=== PATIENT | male | born 1985 | race Caucasian/White ===

== ENCOUNTER 2020-02-17 19:24 | Emergency (ER) | payer BC ==
[~2020-02-17] VITALS: Ht 180.3 cm; Wt 112.0 kg
[2020-02-17 19:52] VITALS: BP 171/94
[2020-02-17] MEDS ORDERED: IV NORMAL SALINE 1,000ML 1,000 ML IV ONE (20:15)
[2020-02-17] MEDS ORDERED: ONDANSETRON PF 4 MG/2 ML VIAL. IVP ONE (20:15)
--- NOTE | 2020-02-17 20:18 | PHYS DOC ---
Past History Past Medical History: No Pertinent History Additional Past Surgical Histo: Hip surgery x2 Alcohol Use: Heavy General Adult EDM: Chief Complaint: ALCOHOL INTOXICATION HPI: HPI: Patient is a 34-year-old male coming in with father for alcohol intoxication and dependence. Patient was wanting to go to rehab after drinking heavily for the past 8 days. Patient states he drinks daily. Denies any history of alcohol drawl seizures but does get tremors. Denies any other medical problems. Denies any drug use. Says he uses chewing tobacco. Denies suicidal or homicidal ideation or hallucinations. Her father has been to rehab twice before Review of Systems: Review of Systems: Constitutional: Denies fever or chills Eyes: Denies change in visual acuity HENT: Denies nasal congestion or sore throat Respiratory: Denies cough or shortness of breath Cardiovascular: Denies chest pain or edema GI: Denies abdominal pain, nausea, vomiting, bloody stools or diarrhea : Denies dysuria Musculoskeletal: Denies back pain or joint pain Integument: Denies rash Neurologic: Denies headache, focal weakness or sensory changes Endocrine: Denies polyuria or polydipsia Lymphatic: Denies swollen glands Psychiatric: Denies depression or anxiety Current Medications: Current Meds: Current Medications Medications (Trade) Dose Ordered Sig/Carmela Start Time Stop Time Status Last Admin Dose Admin Ondansetron HCl (Zofran) 4 mg 1X ONCE 02/17/20 20:15 02/17/20 20:16 Sodium Chloride 1,000 ml @ 1,000 mls/hr 1X ONCE 02/17/20 20:15 02/17/20 21:14 Allergies: Allergies: Allergies Coded Allergies Type Severity Reaction Last Updated Verified No Known Drug Allergies 02/17/20 No Physical Exam: PE: Constitutional: Well developed, well nourished, no acute distress, non-toxic appearance. [] HENT: Normocephalic, atraumatic, bilateral external ears normal, oropharynx moist, no oral exudates, nose normal. [] Eyes: PERRLA, EOMI, conjunctiva normal, no discharge. [] Neck: Normal range of motion, no tenderness, supple, no stridor. [] Cardiovascular:Heart rate regular rhythm, no murmur [] Lungs & Thorax: Bilateral breath sounds clear to auscultation [] Abdomen: Bowel sounds normal, soft, no tenderness, no masses, no pulsatile masses. [] Skin: Warm, dry, no erythema, no rash. [] Back: No tenderness, no CVA tenderness. [] Extremities: No tenderness, no cyanosis, no clubbing, ROM intact, no edema. [] Neurologic: Alert and oriented X 3, normal motor function, normal sensory function, no focal deficits noted. [] Psychologic: Affect normal, judgement normal, mood normal. [] Current Patient Data: Vital Signs: Vital Signs Date Time Temp Pulse Resp B/P (MAP) Pulse Ox O2 Delivery O2 Flow Rate FiO2 02/17/20 19:52 98.2 88 18 171/94 (119) 95 EKG: EKG: [] Radiology/Procedures: Radiology/Procedures: [] Heart Score: Risk Factors: Risk Factors: DM, Current or recent (<one month) smoker, HTN, HLP, family history of CAD, obesity. Risk Scores: Score 0 - 3: 2.5% MACE over next 6 weeks - Discharge Home Score 4 - 6: 20.3% MACE over next 6 weeks - Admit for Clinical Observation Score 7 - 10: 72.7% MACE over next 6 weeks - Early Invasive Strategies Course & Med Decision Making: Course & Med Decision Making No acute process of intoxication with alcohol [] Dragon Disclaimer: Jas Disclaimer: This electronic medical record was generated, in whole or in part, using a voice recognition dictation system. Departure Departure: Impression: Primary Impression: Alcohol abuse Disposition: 01 DC HOME SELF CARE/HOMELESS Condition: STABLE Referrals: PCP,NO (PCP) Patient Instructions: Alcohol Intoxication, [id number] Additional Instructions: Medically cleared by emergency department for inpatient detox and alcohol treatment GINA PARDO MD Feb 17, 2020 20:18
[2020-02-17 21:05] LABS: BASO # 0.1 x10^3/uL (0.0-0.2); BASO % 2 % (0-3); EOS % 0 % (0-3); HEMATOCRIT 50.6 % (39.0-53.0); HEMOGLOBIN 16.6 g/dL (13.0-17.5); LYMPH # 1.4 x10^3/uL (1.0-4.8); LYMPH % 31 % (24-48); MEAN CORPUSCULAR HEMOGLOBIN 32 pg (25-35); MEAN CORPUSCULAR HGB CONC 33 g/dL (31-37); MEAN CORPUSCULAR VOLUME 97 fL (79-100); MONO # 0.6 x10^3/uL (0.0-1.1); MONO % 14 % (0-9); NEUT # 2.3 x10^3uL (1.8-7.7); NEUT % 52 % (31-73); PLATELET COUNT 224 x10^3/uL (140-400); RED BLOOD COUNT 5.23 x10^6/uL (4.30-5.70); RED CELL DISTRIBUTION WIDTH 13.3 % (11.5-14.5); WHITE BLOOD COUNT 4.5 x10^3/uL (4.0-11.0)
[2020-02-17 21:15] LABS: CALCIUM 9.4 mg/dL (8.5-10.1); CREATININE 1.1 mg/dL (0.7-1.3); GFR 77.6; POTASSIUM 4.3 mmol/L (3.5-5.1)
[2020-02-17 21:21] LABS: ALBUMIN 4.2 g/dL (3.4-5.0); MAGNESIUM 2.2 mg/dL (1.8-2.4); TOTAL BILIRUBIN 0.4 mg/dL (0.2-1.0); TOTAL PROTEIN 8.6 g/dL (6.4-8.2)
[2020-02-17 21:22] LABS: SALIC < 2.8 mg/dL (2.8-20.0)
[2020-02-17 21:23] LABS: ACETAMIN < 2.0 mcg/mL (10-30); ETHANOL > 300 mg/dL (0-10)
[2020-02-17 22:22] LABS: AMPHETAMINE/METHAMPHETAMINE NEG (NEG); BARBITURATES NEG (NEG); BENZODIAZEPINES NEG (NEG); CANNABINOIDS NEG (NEG); COCAINE NEG (NEG); METHADONE NEG (NEG); OPIATES NEG (NEG); PHENCYCLIDINE NEG (NEG)
[2020-02-17 22:24] LABS: BILIRUBIN,URINE NEG (NEG); CLARITY,URINE CLEAR; COLOR,URINE YELLOW; GLUCOSE,URINE NEG (NEG); UROBILINOGEN,URINE 0.2 mg/dL (0.2 mg/dL)
[2020-02-17 22:25] LABS: BACTERIA,URINE 0 /HPF (0-FEW); NITRITE,URINE NEG (NEG); RBC,URINE 0 /HPF (0-2); SQUAMOUS EPITHELIAL CELL,UR OCC /LPF; WBC,URINE 0 /HPF (0-4)
== END 2020-02-17 22:45 | disposition home or self-care (01) ==
LOC: ER 19:24
DX: F10.229 Alcohol dependence with intoxication, unspecified (principal); F17.220 Nicotine dependence, chewing tobacco, uncomplicated; Y90.8 Blood alcohol level of 240 mg/100 ml or more
CPT/HCPCS: 36415; 80053; 80307; 80329; 81001; 83735; 85025; 96360; 99283; G0480; J7030

== ENCOUNTER 2020-04-02 13:43 | Emergency (ER) | payer BC ==
[~2020-04-02] VITALS: Ht 180.3 cm; Wt 115.1 kg
[2020-04-02] MEDS ORDERED: LABETALOL 20 MG/4 ML DISP.SYRIN. IVP ONE (14:15)
--- NOTE | 2020-04-02 14:17 | PHYS DOC ---
Past History Past Medical History: No Pertinent History Additional Past Surgical Histo: Hip surgery x2 Alcohol Use: Heavy General Adult EDM: Chief Complaint: LOWER EXTREMITY EDEMA HPI: HPI: Patient is a 34 year old M who presents with bilateral lower ext swelling. this started a few days ago and has progressively been getting worse. He denies any new rashes. He denies fevers. He as generalized aches over all the extremities and he has noticed his hands ahve been swelling as well. Location generalized. Duration constant. No alleviating factors. He was seen by a urgent care who sent him here for blood work. He has a history of hypertension but has not been taking his medications for multiple months. Review of systems is negative for rashes fevers chills abdominal pain vomiting chest pain shortness of breath. All other review of systems negative. ED course: 34-year-old male presenting to the emergency department today with extremity swelling. On arrival the patient was hypertensive. I had ordered labetalol however the patient's blood pressure came down before we gave the labetalol so we did not give the labetalol. Ultrasound of the venous system of the legs bilaterally unremarkable. CBC and chemistry panel unremarkable. Urinalysis unremarkable. proBNP is elevated. Troponin within normal limits. EKG shows sinus tachycardia. ST segments are congruent. Not suggestive of acute ischemia. We will give the patient a small dose of Lasix here and give him oral Lasix for a few days. We will have him follow-up with his regular doctor or our internal medicine doctor within the next 2 or 3 days. We will also refer him to outpatient cardiology within the next 2 to 3 days. He probably will need to get an echocardiogram within the next week. He is to return if he cannot get this outpatient work-up. The patient has been examined and was not found to have an emergency medical condition. The patient was then discharged home in stable condition to follow up with their primary care p hysician over the next 1-2 days. They were to return if their symptoms worsened or if they were concerned for any reason. They were also instructed to return to the emergency department if they were unable to get the recommended and appropriate follow-up. [id number] discharge instructions and return precautions were given. Patient's questions were answered to their satisfaction. Patient is comfortable with plan. Allergies: Allergies: Allergies Coded Allergies Type Severity Reaction Last Updated Verified No Known Drug Allergies 02/17/20 No Physical Exam: PE: Constitutional: Well developed, well nourished, no acute distress, non-toxic a ppearance. [] HENT: Normocephalic, atraumatic, bilateral external ears normal, oropharynx moist, no oral exudates, nose normal. [] Eyes: PERRLA, EOMI, conjunctiva normal, no discharge. [] Neck: Normal range of motion, no tenderness, supple, no stridor. [] Cardiovascular:Heart rate regular rhythm, no murmur [] Lungs & Thorax: Bilateral breath sounds clear to auscultation [] Abdomen: Bowel sounds normal, soft, no tenderness, no masses, no pulsatile masses. [] Skin: Warm, dry, no erythema, no rash. [] Back: No tenderness, no CVA tenderness. [] Extremities: No tenderness, no cyanosis, no clubbing, ROM intact, 2+ bilateral pedal edema Neurologic: Alert and oriented X 3, normal motor function, normal sensory function, no focal deficits noted. [] Psychologic: Affect normal, judgement normal, mood normal. [] EKG: EKG: [] Radiology/Procedures: Radiology/Procedures: [] Heart Score: Risk Factors: Risk Factors: DM, Current or recent (<one month) smoker, HTN, HLP, family history of CAD, obesity. Risk Scores: Score 0 - 3: 2.5% MACE over next 6 weeks - Discharge Home Score 4 - 6: 20.3% MACE over next 6 weeks - Admit for Clinical Observation Score 7 - 10: 72.7% MACE over next 6 weeks - Early Invasive Strategies Course & Med Decision Making: Course & Med Decision Making Pertinent Labs and Imaging studies reviewed. (See chart for details) [] Dragon Disclaimer: Dragon Disclaimer: This electronic medical record was generated, in whole or in part, using a voice recognition dictation system. Departure Departure: Impression: Primary Impression: Leg edema Disposition: 01 DC HOME SELF CARE/HOMELESS Condition: STABLE Referrals: PCP,STEPHANIE (PCP) GREGG ROMAN MD in 2-3 days RALPH RAMIRES MD in 2-3 days Patient Instructions: Heart Failure Scripts Furosemide (LASIX) 20 Mg Tablet 1 TAB PO DAILY for pedal edema for 3 Days, #3 TAB 0 Refills Prov: MARCELO ANTONIO MD 04/02/20 MARCELO ANTONIO MD Apr 02, 2020 14:17
[2020-04-02 14:48] LABS: BASO # 0.1 x10^3/uL (0.0-0.2); BASO % 1 % (0-3); EOS # 0.1 x10^3/uL (0.0-0.7); EOS % 1 % (0-3); HEMATOCRIT 41.3 % (39.0-53.0); HEMOGLOBIN 13.7 g/dL (13.0-17.5); LYMPH # 1.6 x10^3/uL (1.0-4.8); LYMPH % 21 % (24-48); MEAN CORPUSCULAR HEMOGLOBIN 31 pg (25-35); MEAN CORPUSCULAR HGB CONC 33 g/dL (31-37); MEAN CORPUSCULAR VOLUME 93 fL (79-100); MONO # 0.6 x10^3/uL (0.0-1.1); MONO % 9 % (0-9); NEUT % 68 % (31-73); PLATELET COUNT 176 x10^3/uL (140-400); RED BLOOD COUNT 4.44 x10^6/uL (4.30-5.70); RED CELL DISTRIBUTION WIDTH 12.9 % (11.5-14.5); WHITE BLOOD COUNT 7.3 x10^3/uL (4.0-11.0)
[2020-04-02 14:55] LABS: BACTERIA,URINE 0 /HPF (0-FEW); BILIRUBIN,URINE NEG (NEG); CLARITY,URINE CLEAR; COLOR,URINE YELLOW; GLUCOSE,URINE NEG (NEG); NITRITE,URINE NEG (NEG); RBC,URINE 0 /HPF (0-2); SQUAMOUS EPITHELIAL CELL,UR OCC /LPF; UROBILINOGEN,URINE 0.2 mg/dL (0.2 mg/dL); WBC,URINE 0 /HPF (0-4)
[2020-04-02 14:56] LABS: CALCIUM 8.8 mg/dL (8.5-10.1); CREATININE 0.7 mg/dL (0.7-1.3); GFR 130.7; POTASSIUM 3.8 mmol/L (3.5-5.1)
--- NOTE | 2020-04-02 14:56 | RAD ---
Examination: Bilateral Lower Extremity Venous Doppler Ultrasound History: Bilateral lower extremity swelling Comparison: None Procedure: Maldonado scale, color flow 2D and spectal waveform analysis images are obtained with and witho ut compression in the area of the common femoral vein, superficial femoral vein - femoral vein juncti on, main femoral vein (superficial femoral vein) and popliteal vein. Veins of the proximal calf are a lso imaged. Findings: There is normal duplex flow, color flow and compressibility of all visualized vein segments. No evide nce of deep venous thrombus is present. Impression: No evidence of DVT in the bilateral lower extremity venous system. Electronically signed by: Isaias Sheikh MD (04/02/2020 2:53 PM) [id number]
[2020-04-02 15:08] LABS: ALBUMIN 3.6 g/dL (3.4-5.0); DIRECT BILIRUBIN 0.2 mg/dL (0.0-0.2); TOTAL BILIRUBIN 0.5 mg/dL (0.2-1.0); TOTAL PROTEIN 6.9 g/dL (6.4-8.2)
[2020-04-02 15:10] VITALS: BP 151/95
[2020-04-02] MEDS ORDERED: FUROSEMIDE 40 MG/4 ML VIAL IVP ONE (15:30)
[2020-04-02] MEDS ORDERED: FURO-69 PO (15:31)
--- NOTE | 2020-04-02 16:10 | EKG ---
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
== END 2020-04-02 16:19 | disposition home or self-care (01) ==
LOC: ER 13:43
DX: R60.0 Localized edema (principal); M79.10 Myalgia, unspecified site; F10.20 Alcohol dependence, uncomplicated; Y90.9 Presence of alcohol in blood, level not specified
CPT/HCPCS: 36415; 80048; 80076; 81001; 83690; 83880; 84484; 85025; 93005; 93970; 96374; 99285; J1940

== ENCOUNTER 2020-06-02 11:13 | Emergency (ER) | payer SELFPAY ==
[~2020-06-02] VITALS: Ht 177.8 cm; Wt 95.0 kg
[~2020-06-02 11:13] MED LIST: FURO-69 PO
[2020-06-02 11:45] LABS: BASO # 0.1 x10^3/uL (0.0-0.2); BASO % 2 % (0-3); EOS % 0 % (0-3); HEMATOCRIT 49.1 % (39.0-53.0); HEMOGLOBIN 16.1 g/dL (13.0-17.5); LYMPH # 1.7 x10^3/uL (1.0-4.8); LYMPH % 30 % (24-48); MEAN CORPUSCULAR HEMOGLOBIN 31 pg (25-35); MEAN CORPUSCULAR HGB CONC 33 g/dL (31-37); MEAN CORPUSCULAR VOLUME 94 fL (79-100); MONO # 0.5 x10^3/uL (0.0-1.1); MONO % 9 % (0-9); NEUT # 3.2 x10^3uL (1.8-7.7); NEUT % 59 % (31-73); PLATELET COUNT 301 x10^3/uL (140-400); RED BLOOD COUNT 5.23 x10^6/uL (4.30-5.70); RED CELL DISTRIBUTION WIDTH 14.2 % (11.5-14.5); WHITE BLOOD COUNT 5.4 x10^3/uL (4.0-11.0)
[2020-06-02 12:16] LABS: CALCIUM 9.4 mg/dL (8.5-10.1); CREATININE 0.8 mg/dL (0.7-1.3); GFR 111.3
--- NOTE | 2020-06-02 12:25 | EKG ---
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
[2020-06-02 12:29] LABS: ALBUMIN 4.2 g/dL (3.4-5.0); ALBUMIN/GLOBULIN RATIO 1.1 (1.0-1.7); MAGNESIUM 1.9 mg/dL (1.8-2.4); PHOSPHORUS 4.6 mg/dL (2.6-4.7); TOTAL BILIRUBIN 0.5 mg/dL (0.2-1.0)
[2020-06-02 12:48] LABS: SALIC < 2.8 mg/dL (2.8-20.0)
[2020-06-02 12:49] LABS: ACETAMIN < 2.0 mcg/mL (10-30); ETHANOL 600 mg/dL (0-10)
--- NOTE | 2020-06-02 13:27 | PHYS DOC ---
Past History Past Medical History: Alcoholism Additional Past Medical Histor: UNKNOW PT UNABLE TO RESPOND (GINA PARDO MD) Past Surgical History: No Surgical History (GINA PARDO MD) Alcohol Use: Heavy Social History Narrative: UNKNOWN SUBSTANCE (GINA PARDO MD) General Adult EDM: Chief Complaint: ALCOHOL INTOXICATION HPI: HPI: Patient is a 35-year-old male brought in by EMS after being found minimally responsive at home. Patient has a history of alcohol and drug use. EMS gave Narcan with some response and increased respiratory rate. Patient has had but stable vital signs. History limited to EMS report due to no presence of family and patient's intoxication. After patient arrived he states he has been drinking heavily daily for 10 years. Says occasions of the drugs. Patient states that he also has anxiety and takes Klonopin and Xanax, states he does not member who prescribes them for him but he has had prescriptions filled within the past 30 days. Per [facility] there are no benzodiazepines prescriptions filled since 2019. (GINA PARDO MD) Review of Systems: Review of Systems: Limited by patient's intoxication (GINA PARDO MD) Physical Exam: PE: Constitutional: Well developed, well nourished. [] HENT: Normocephalic, atraumatic, bilateral external ears normal, nose normal. [] Eyes: PERRLA, conjunctiva normal, no discharge. [] Neck: No rigidity, supple, no stridor. [] Cardiovascular: Regular rate and rhythm, brisk cap refill [] Lungs & Thorax: Non labored symmetric respirations, no tachypnea or respiratory distress [] Abdomen: Soft, nondistended. Skin: Warm, dry, no erythema, no rash. [] Back: Unremarkable Extremities: No deformities, range of motion grossly intact, no lower extremity edema [] Neurologic: Awakes to voice [] Psychologic: Affect normal, judgement normal, mood normal. [] (GINA PARDO MD) Current Patient Data: Labs: Laboratory Tests Test 06/02/20 11:26 White Blood Count 5.4 x10^3/uL (4.0-11.0) Red Blood Count 5.23 x10^6/uL (4.30-5.70) Hemoglobin 16.1 g/dL (13.0-17.5) Hematocrit 49.1 % (39.0-53.0) Mean Corpuscular Volume 94 fL (79-100) Mean Corpuscular Hemoglobin 31 pg (25-35) Mean Corpuscular Hemoglobin Concent 33 g/dL (31-37) Red Cell Distribution Width 14.2 % (11.5-14.5) Platelet Count 301 x10^3/uL (140-400) Neutrophils (%) (Auto) 59 % (31-73) Lymphocytes (%) (Auto) 30 % (24-48) Monocytes (%) (Auto) 9 % (0-9) Eosinophils (%) (Auto) 0 % (0-3) Basophils (%) (Auto) 2 % (0-3) Neutrophils # (Auto) 3.2 x10^3uL (1.8-7.7) Lymphocytes # (Auto) 1.7 x10^3/uL (1.0-4.8) Monocytes # (Auto) 0.5 x10^3/uL (0.0-1.1) Eosinophils # (Auto) 0.0 x10^3/uL (0.0-0.7) Basophils # (Auto) 0.1 x10^3/uL (0.0-0.2) Sodium Level 139 mmol/L (136-145) Potassium Level 5.0 mmol/L (3.5-5.1) Chloride Level 96 mmol/L (98-107) L Carbon Dioxide Level 25 mmol/L (21-32) Anion Gap 18 (6-14) H Blood Urea Nitrogen 16 mg/dL (8-26) Creatinine 0.8 mg/dL (0.7-1.3) Estimated GFR (Cockcroft-Gault) 111.3 BUN/Creatinine Ratio 20 (6-20) Glucose Level 77 mg/dL (70-99) Calcium Level 9.4 mg/dL (8.5-10.1) Phosphorus Level 4.6 mg/dL (2.6-4.7) Magnesium Level 1.9 mg/dL (1.8-2.4) Total Bilirubin 0.5 mg/dL (0.2-1.0) Aspartate Amino Transferase (AST) 171 U/L (15-37) H Alanine Aminotransferase (ALT) 241 U/L (16-63) H Alkaline Phosphatase 105 U/L (46-116) Ammonia 14 mcmol/L (11-34) Troponin I Quantitative < 0.017 ng/mL (0-0.055) TZ-Esq-Z-Type Natriuretic Peptide 5 pg/mL (0-124) Total Protein 8.0 g/dL (6.4-8.2) Albumin 4.2 g/dL (3.4-5.0) Albumin/Globulin Ratio 1.1 (1.0-1.7) Lipase 484 U/L (73-393) H Salicylates Level < 2.8 mg/dL (2.8-20.0) L Salicylate Last Dose Date Unknown Salicylate Last Dose Time Unknowm Acetaminophen Level < 2.0 mcg/mL (10-30) L Acetaminophen Last Dose Date Unknown Acetaminophen Last Dose Time Unknown Ethyl Alcohol Level 600 mg/dL (0-10) *H Vital Signs: Vital Signs Date Time Temp Pulse Resp B/P (MAP) Pulse Ox O2 Delivery O2 Flow Rate FiO2 06/02/20 12:00 98.0 93 16 142/92 (109) 92 Room Air (GINA PARDO MD) EKG: EKG: Sinus tachycardia, heart rate 102 bpm, normal axis, no ST elevation or depression, no ischemic changes. T waves unremarkable, borderline QT prolongation, no ectopy [] (GINA PARDO MD) Radiology/Procedures: Radiology/Procedures: [] (GINA PARDO MD) Heart Score: C/O Chest Pain: N/A Risk Factors: Risk Factors: DM, Current or recent (<one month) smoker, HTN, HLP, family hi story of CAD, obesity. Risk Scores: Score 0 - 3: 2.5% MACE over next 6 weeks - Discharge Home Score 4 - 6: 20.3% MACE over next 6 weeks - Admit for Clinical Observation Score 7 - 10: 72.7% MACE over next 6 weeks - Early Invasive Strategies (GINA PARDO MD) Course & Med Decision Making: Course & Med Decision Making Patient evaluated by the psych assessment team. Patient states he is willing to go to inpatient detox and rehab. He can be accepted to [facility] when alcohol as below 400. Patient prescribed a Librium taper. Pending repeat alcohol level at 1830, care transitioned to Dr. Castillo at shift change (GINA PARDO MD) Course & Med Decision Making Patient care transferred to ia at shift change. Patient alert and oriented no acute distress. Patient still mildly tachycardic and hypertensive. Administered another dose of Ativan before departure. Plan was to transport patient as nausea was still stable to [facility] when blood alcohol level less than 400. Patient's repeat level at 352 and patient was transferred to [facility] without issue. (EDER CASTILLO MD) Dragon Disclaimer: Dragon Disclaimer: This electronic medical record was generated, in whole or in part, using a voice recognition dictation system. (GINA PARDO MD) Departure Departure: Impression: Primary Impression: Alcohol dependence Disposition: 01 DC HOME SELF CARE/HOMELESS Condition: GUARDED Referrals: PCP,NO (PCP) Patient Instructions: Alcohol Septal Ablation Scripts Chlordiazepoxide Hcl (CHLORDIAZEPOXIDE HCL) 25 Mg Capsule 25 MG PO UD for etoh withdrawal for 4 Days, #15 CAP Day 1: 50mg q6h Day 2: 25mg q6h Day 3: 25mg q12h Day 4: 25mg at night (Rx fifteen 25mg tabs) Max 300mg per 24 hours Prov: GINA PARDO MD 06/02/20 GINA PARDO MD Jun 02, 2020 13:27 EDER CASTILLO MD Jun 02, 2020 19:50
[2020-06-02 13:29] LABS: BARBITURATES NEG (NEG); BENZODIAZEPINES NEG (NEG); CANNABINOIDS NEG (NEG); COCAINE NEG (NEG); METHADONE NEG (NEG); OPIATES NEG (NEG); PHENCYCLIDINE NEG (NEG)
[2020-06-02 13:31] LABS: AMORPHOUS SEDIMENT,UR PRESENT /HPF; BACTERIA,URINE 0 /HPF (0-FEW); BILIRUBIN,URINE NEG (NEG); CLARITY,URINE CLEAR; COLOR,URINE YELLOW; GLUCOSE,URINE NEG (NEG); NITRITE,URINE NEG (NEG); RBC,URINE 0 /HPF (0-2); UROBILINOGEN,URINE 0.2 mg/dL (0.2 mg/dL); WBC,URINE 0 /HPF (0-4)
[2020-06-02 13:34] LABS: AMPHETAMINE/METHAMPHETAMINE NEG (NEG)
[2020-06-02] MEDS ORDERED: IV NORMAL SALINE 1,000ML 1,000 ML IV ONE ×3 (14:15→18:15)
[2020-06-02] MEDS ORDERED: ONDANSETRON PF 4 MG/2 ML VIAL. IVP ONE (14:30)
[2020-06-02] MEDS ORDERED: KETOROLAC 15 MG/ML VIAL. IVP ONE (14:30)
[2020-06-02] MEDS ORDERED: hydrOXYzine HCL 25 MG TABLET PO PRN (15:30)
[2020-06-02] MEDS ORDERED: MVI, ADULT NO.4 WITH VIT K 10 ML, FOLIC ACID INJ 1 MG, THIAMINE INJ 100 MG in IV RINGER... IV ONE (16:30)
[2020-06-02] MEDS ORDERED: CHLO25CA9 PO (17:19)
[2020-06-02 20:11] VITALS: BP 126/87
== END 2020-06-02 21:35 | disposition home or self-care (01) ==
LOC: MERGE 11:13 → ER 11:13
DX: F10.20 Alcohol dependence, uncomplicated (principal); Y90.8 Blood alcohol level of 240 mg/100 ml or more
CPT/HCPCS: 36415; 80053; 80307; 80329; 81001; 82140; 83690; 83735; 83880; 84100; 84484; 85025; 93005; 96361; 96365; 96375; 96376; 99285; G0480; J1885; J2060; J2405; J7030; J7120

== ENCOUNTER 2021-02-21 06:59 | Inpatient (IN) | payer BC ==
[~2021-02-21] VITALS: Ht 182.9 cm; Wt 103.6 kg
[~2021-02-21 06:59] MED LIST changes: +CHLO25CA9 PO
[2021-02-21] MEDS ORDERED: VANCOMYCIN PER PHARMACY MC PRN (07:30)
[2021-02-21] MEDS ORDERED: IV NORMAL SALINE 1,000ML 1,000 ML IV ONE (07:30)
[2021-02-21] MEDS ORDERED: ONDANSETRON PF 4 MG/2 ML VIAL. IVP ONE (07:30)
[2021-02-21] MEDS ORDERED: MORPHINE SULFATE 4 MG/ML DISP.SYRIN. IV ONE (07:30)
--- NOTE | 2021-02-21 07:37 | PHYS DOC ---
Past History Past Medical History: Alcoholism Additional Past Medical Histor: UNKNOW PT UNABLE TO RESPOND Past Surgical History: No Surgical History Additional Past Surgical Histo: knee surgery, left Alcohol Use: Heavy General Adult EDM: Chief Complaint: SKIN PROBLEM HPI: HPI: 35-year-old male presents with right leg pain and rash. The patient ran into a piece of furniture 3 days ago and sustained some scratches to his right lower leg. It was painful but he did not think that much of it. He had some spreading erythema and warmth of the skin yesterday and he put Neosporin and hydroperoxide on the area without improvement. When he woke up this morning, he had 2 oozing lesions from his leg and it was painful to even stand up. He also noticed red streaking coming up his thigh to his groin. He decided he should come in for evaluation. On arrival the patient nearly had a fever with a temperature of 100.1. His heart rate is elevated in the 140s. Patient denies any other complaints at this time. Review of Systems: Review of Systems: Constitutional: Denies fever or chills Eyes: Denies change in visual acuity HENT: Denies nasal congestion or sore throat Respiratory: Denies cough or shortness of breath Cardiovascular: Denies chest pain or edema GI: Denies abdominal pain, nausea, vomiting, bloody stools or diarrhea : Denies dysuria Musculoskeletal: Denies back pain or joint pain Integument: Rash, lesions Neurologic: Denies headache, focal weakness or sensory changes Endocrine: Denies polyuria or polydipsia Lymphatic: Denies swollen glands Psychiatric: Denies depression or anxiety Current Medications: Current Meds: Current Medications Medications (Trade) Dose Ordered Sig/Carmela Start Time Stop Time Status Last Admin Dose Admin Morphine Sulfate (Morphine 4mg Syringe) 4 mg 1X ONCE 02/21/21 07:30 02/21/21 07:32 DC Ondansetron HCl (Zofran) 4 mg 1X ONCE 02/21/21 07:30 02/21/21 07:32 DC Sodium Chloride 3,000 ml @ 3,000 mls/hr Q1H 02/21/21 07:45 UNV Vancomycin HCl (Vanco Per Pharmacy) 1 each PRN DAILY PRN 02/21/21 07:30 Vancomycin HCl 2 gm/Sodium Chloride 500 ml @ 250 mls/hr 1X ONCE 02/21/21 08:00 12/6/21 09:59 Allergies: Allergies: Allergies Coded Allergies Type Severity Reaction Last Updated Verified No Known Drug Allergies 02/17/20 No Physical Exam: PE: Constitutional: Well developed, well nourished, no acute distress, non-toxic appearance. [] HENT: Normocephalic, atraumatic, bilateral external ears normal, oropharynx moist, no oral exudates, nose normal. [] Eyes: PERRLA, EOMI, conjunctiva normal, no discharge. [] Neck: Normal range of motion, no tenderness, supple, no stridor. [] Cardiovascular:Heart rate regular rhythm, no murmur [] Lungs & Thorax: Bilateral breath sounds clear to auscultation [] Abdomen: Bowel sounds normal, soft, no tenderness, no masses, no pulsatile masses. [] Skin: To open and oozing sores of the right lower leg with at least 15 cm of surrounding erythema and warmth. Red streaking up the medial right leg to the groin. [] Back: No tenderness, no CVA tenderness. [] Extremities: No tenderness, no cyanosis, no clubbing, ROM intact, no edema. [] Neurologic: Alert and oriented X 3, normal motor function, normal sensory function, no focal deficits noted. [] Psychologic: Affect normal, judgement normal, mood normal. [] Current Patient Data: Vital Signs: Vital Signs Date Time Temp Pulse Resp B/P (MAP) Pulse Ox O2 Delivery O2 Flow Rate FiO2 02/21/21 07:12 100.1 140 20 166/120 (135) 96 Room Air EKG: EKG: [] Radiology/Procedures: Radiology/Procedures: [] Heart Score: C/O Chest Pain: N/A Risk Factors: Risk Factors: DM, Current or recent (<one month) smoker, HTN, HLP, family history of CAD, obesity. Risk Scores: Score 0 - 3: 2.5% MACE over next 6 weeks - Discharge Home Score 4 - 6: 20.3% MACE over next 6 weeks - Admit for Clinical Observation Score 7 - 10: 72.7% MACE over next 6 weeks - Early Invasive Strategies Course & Med Decision Making: Course & Med Decision Making Pertinent Labs and Imaging studies reviewed. (See chart for details) The patient has an elevated heart rate and borderline fever on arrival. His labs are significant for an elevated white count with a left shift. He has a sodium of 127 and some increased liver enzymes. His lactic acid is within normal limits. I have ordered 30 mL/kg of fluids, blood cultures, and vancomycin. Given the rapid advancement and streaking I will admit the patient to the hospital. I spoke with Dr. Lowery and he has accepted the patient for admission. [] Dragon Disclaimer: Dragon Disclaimer: This electronic medical record was generated, in whole or in part, using a voice recognition dictation system. Departure Departure: Impression: Primary Impression: Cellulitis of right leg Disposition: ADMITTED INPATIENT Admitting Physician: Quinn Lowery Condition: STABLE Referrals: PCP,NO (PCP) JORGE GREGORY DO Feb 21, 2021 07:37
[2021-02-21 07:48] LABS: BASO % 0 % (0-3); EOS % 0 % (0-3); HEMATOCRIT 42.6 % (39.0-53.0); HEMOGLOBIN 14.7 g/dL (13.0-17.5); LYMPH # 1.3 x10^3/uL (1.0-4.8); LYMPH % 9 % (24-48); MEAN CORPUSCULAR HEMOGLOBIN 32 pg (25-35); MEAN CORPUSCULAR HGB CONC 35 g/dL (31-37); MEAN CORPUSCULAR VOLUME 94 fL (79-100); MONO # 1.1 x10^3/uL (0.0-1.1); MONO % 8 % (0-9); NEUT # 11.6 x10^3uL (1.8-7.7); NEUT % 83 % (31-73); PLATELET COUNT 235 x10^3/uL (140-400); RED BLOOD COUNT 4.55 x10^6/uL (4.30-5.70); RED CELL DISTRIBUTION WIDTH 14.1 % (11.5-14.5)
[2021-02-21] MEDS ORDERED: VANCOMYCIN 2 GM in IV NORMAL SALINE 500ML 500 ML IV ONE (08:00)
[2021-02-21] MEDS ORDERED: IV NORMAL SALINE 500ML 500 ML ONE (08:00)
[2021-02-21 08:01] LABS: CALCIUM 9.1 mg/dL (8.5-10.1); CREATININE 0.8 mg/dL (0.7-1.3); GFR 111.3; POTASSIUM 3.8 mmol/L (3.5-5.1)
[2021-02-21] MEDS ORDERED: VANCOMYCIN 1 GM VIAL. ONE (08:01)
[2021-02-21 08:16] LABS: ALBUMIN 3.5 g/dL (3.4-5.0); ALBUMIN/GLOBULIN RATIO 0.7 (1.0-1.7); TOTAL BILIRUBIN 0.6 mg/dL (0.2-1.0); TOTAL PROTEIN 8.4 g/dL (6.4-8.2)
[2021-02-21] MEDS ORDERED: ONDANSETRON PF 4 MG/2 ML VIAL. IVP PRN (08:45)
[2021-02-21] MEDS: ACETAMINOPHEN 325 MG TABLET PO PRN ×2 (09:20→13:41)
[2021-02-21] MEDS: MORPHINE SULFATE 2 MG/ML DISP.SYRIN. IVP PRN ×2 (09:21→13:42)
[2021-02-21 09:42] LABS: BACTERIA,URINE 0 /HPF (0-FEW); BILIRUBIN,URINE NEG (NEG); CLARITY,URINE CLEAR; COLOR,URINE YELLOW; GLUCOSE,URINE NEG (NEG); NITRITE,URINE NEG (NEG); UROBILINOGEN,URINE 0.2 mg/dL (0.2 mg/dL)
[2021-02-21 09:43] LABS: SQUAMOUS EPITHELIAL CELL,UR FEW /LPF
[2021-02-21] MEDS: IV NORMAL SALINE 1,000ML 1,000 ML IV SCH ×3 (09:45→16:01)
[2021-02-21 10:23] LABS: % ATYL 6 % (0-0); % BANDS 14 % (0-9); % LYMPHS 10 % (24-48); % MONOS 4 % (0-10); % SEGS 66 % (35-66); NUCLEATED RBC 1
[2021-02-21 10:25] LABS: PLT ESTIMATE ADEQUATE (ADEQUATE)
[2021-02-21 12:50] VITALS: BP 152/95
--- NOTE | 2021-02-21 13:26 | NUR ---
PATIENT IS A 35 Y O MALE ARRIVED VIA EMS. PATIENT IS C/O PAIN TO RLE. PATIENT IS COVID POSITIVE, COVID PRECAUTIONS INITIATED. PATIENT IS ORIENTED TO THE ROOM AND HOSPITAL POLICIES.
--- NOTE | 2021-02-21 13:40 | NUR ---
Pharmacy Vancomycin Dosing Note S:Consulted to monitor and dose vancomycin started 02/21/21. O:MARIIA BOATENG I is a 35 year old M with Cellulitis, . Height: 6 feet, 0 inches Weight: 100.0 kg [place] Body Weight: 77.60 Adjusted Body Weight: 86.56 Dosing Weight: Actual Other Antibiotics: LABS: Last BUN: 7 Last Creatinine: 0.8 Creatinine Clearance: Last WBC: 14 Last Procalcitonin: Tmax (past 24 hours): Microbiology: I/O: Drug Levels: Last level: on at Last dose given 02/21/21 at 0800 Vancomycin Dosing: Loading Dose: 2000 mg x1 Dosing Weight: Actual Target Trough: 10-20 A: Based on: P: 1. Begin Vancomycin 1500 mg IV q12h 2. Follow up Trough level on 02/22/21 at 0730 3. Pharmacy will continue to monitor, follow and adjust therapy as needed. LUCERO DAMON RPH, 02/21/21 [id number]
[2021-02-21] MEDS ORDERED: ENOXAPARIN 40 MG/0.4 ML SYRINGE. SQ SCH (15:30)
[2021-02-21 15:32] VITALS: BP 153/103
[2021-02-21] MEDS: DEXAMETHASONE SOD PHOS 4 MG/ML VIAL. IVP SCH (16:06)
[2021-02-21] MEDS: HYDROmorphone PF 2 MG/ML VIAL IVP PRN ×3 (16:06→23:22)
--- NOTE | 2021-02-21 17:13 | HP ---
DATE OF SERVICE: 02/21/2021 ADMIT DATE: 02/21/2021 HISTORY OF PRESENT ILLNESS: The is a 35-year-old male patient, who presented to the Emergency Room with a complaint of pain and a rash on the right leg. He ran into a piece of furniture 3 days ago and sustained some scratches of his right lower leg. It was painful, but he did not think that much of it. He had some spreading erythema and warmth of the skin yesterday and he put some Neosporin and hydrogen peroxide on the area without any improvement. When he woke up this morning, he had two oozing lesions from his leg. It was very painful to even stand up. He also noticed red streaking coming up his thigh to his groin. He decided that he should come in for evaluation. On arrival, the patient had fever up to a temperature of 100.1, his heart rate was 140. He denied any other complaint at this time; however, on questioning him further, he said that he had flu-like symptoms almost a week and he told that he has had the flu; however, he was not vaccinated for COVID-19 and he did not receive his flu vaccine this year and he was in fact swabbed in the Emergency Room and turned out to be positive for coronavirus. While in the Emergency Room, has had lab work done including CBC, comprehensive metabolic profile, and urinalysis. He was diagnosed with right lower extremity cellulitis and lymphangitis, was started on IV vancomycin and Rocephin, has received about 3 liters of fluid while in the Emergency Room and was admitted for inpatient treatment. He continued to maintain his oxygen saturation at 96% on room air. PAST MEDICAL HISTORY: Significant for hypertension; however, he does not use any medication for that. He has also left hip osteoarthritis that is secondary to broken hip. PAST SURGICAL HISTORY: Significant for left hip surgery. ALLERGIES: He has no known drug allergies. MEDICATIONS: He is only on [id number] medication. FAMILY HISTORY: He has one brother older that at the age of 35 in a motor vehicle accident, has 2 older sisters that are healthy. Father is alive at the age of 65 and has diabetes mellitus. Mother is alive at the age of 60 and has rheumatoid arthritis. SOCIAL HISTORY: He is single, has never , has no children. He does not smoke cigarettes or chew tobacco. He drinks alcohol on weekends. He does not use any drugs. He works at [employer]. REVIEW OF SYSTEMS: As per history of present illness. PHYSICAL EXAMINATION: GENERAL: On arrival to the Emergency Room, he was febrile, tachycardic, tachypneic, but there was no pallor, jaundice, or cyanosis. No lymphadenopathy, no thyromegaly, no jugular venous distention. No lower limb edema. VITAL SIGNS: His heart rate was 140, blood pressure 166/120, temperature was 100.1, respiratory rate 20, and oxygen saturation was 96%. HEAD, EYES, EARS, NOSE, AND THROAT: Normocephalic, atraumatic. NECK: Supple. HEART: Showed normal first and second heart sounds. No gallop, rub or murmur. CHEST: Clear to auscultation, no crepitation or rhonchi. ABDOMEN: Distended, soft, nontender. There is no guarding or rigidity. No organomegaly. All hernial orifice intact. Bowel sounds normal. NEUROLOGIC: He was awake, alert, responding appropriately. Cranial nerves intact. EXTREMITIES: He moves extremities without difficulty. Examination of the right leg compared to the left, he has erythema to the skin lesion with streaking lymphangitis all the way to his right groin. LABORATORY DATA: His lab work on arrival showed a white cell count of 14,000, hemoglobin 14.7, hematocrit 42.6, MCV 94 and platelet count 235,000 with a normal manual differential. His chemistry showed a serum sodium 127, potassium 3.8, chloride 87, bicarbonate 31, anion gap of 9, BUN 7, creatinine was 0.8. His estimated GFR was 111. Glucose 129. His lactic acid was 1.2. His calcium was 9.1. Total bilirubin, alkaline phosphatase are normal. AST, ALT slightly elevated. Total protein was 8.4, albumin was 3.5. Urinalysis was essentially unremarkable. The urine was yellow, clear with a pH of 7, specific gravity of 1.010. There was small amount of protein and the urine was negative for glucose, trace of ketones, trace of blood, negative for nitrite and bilirubin. The urine was negative for leukocyte esterase, there were 3-5 rbc's, 5-10 wbc's, very few bacteria. His coronavirus by rapid testing was positive. ASSESSMENT AND PLAN: In summary, this is a 35-year-old male patient who was admitted with right lower extremity cellulitis and lymphangitis. He was also tested positive for coronavirus. He is also known to have hypertension, for which he is not getting any medication for and therefore, we will continue with IV vancomycin. Continue with pain medication, antiemetic. Continue with ceftriaxone and IV fluid. I will repeat all his lab works again tomorrow. I am going to order also a chest x-ray. SHREYAS/HARVEY DR: Viviana TID: [id number]
--- NOTE | 2021-02-21 17:35 | RAD ---
XR CHEST 1V INDICATION: Reason: cough, SOB COVID POSITIVE / Spl. Instructions: / History: . COMPARISON STUDY: 04/05/2020. FINDINGS: Lungs: Normal lung volume. No pulmonary mass or consolidation. The tracheobronchial tree and hilar st ructures are normal. Pleura: No pleural effusion or pneumothorax. Heart and Mediastinum: Cardiomegaly. The great vessels of the thorax are normal. IMPRESSION: Cardiomegaly. No consolidation. Electronically signed by: Andrew Dias MD (02/21/2021 5:33 PM) [id number]
[2021-02-21 19:00] VITALS: BP 166/122
[2021-02-21] MEDS: VANCOMYCIN 1.5 GM in IV NORMAL SALINE 500ML 500 ML IV SCH (19:56)
[2021-02-21 21:00] VITALS: BP 159/116
[2021-02-21] MEDS ORDERED: MELATONIN 3 MG TABLET PO PRN (21:00)
[2021-02-21] MEDS: amLODIPine BESYLATE 5 MG TABLET PO SCH (21:22)
[2021-02-21 23:00] VITALS: BP 149/105
[2021-02-22] MEDS: IV NORMAL SALINE 1,000ML 1,000 ML IV SCH (04:36)
[2021-02-22] MEDS: HYDROmorphone PF 2 MG/ML VIAL IVP PRN ×2 (04:36→09:35)
[2021-02-22 05:00] VITALS: BP 146/103
[2021-02-22 07:57] LABS: HEMATOCRIT 43.7 % (39.0-53.0); HEMOGLOBIN 14.6 g/dL (13.0-17.5); RED BLOOD COUNT 4.55 x10^6/uL (4.30-5.70); RED CELL DISTRIBUTION WIDTH 14.3 % (11.5-14.5); WHITE BLOOD COUNT 11.5 x10^3/uL (4.0-11.0)
[2021-02-22 08:14] LABS: VANC TR 5.5 mcg/mL (10.0-20.0)
[2021-02-22 08:15] LABS: ALBUMIN 2.8 g/dL (3.4-5.0); ALBUMIN/GLOBULIN RATIO 0.6 (1.0-1.7); CALCIUM 8.2 mg/dL (8.5-10.1); CREATININE 0.7 mg/dL (0.7-1.3); GFR 129.9; TOTAL BILIRUBIN 0.4 mg/dL (0.2-1.0); TOTAL PROTEIN 7.2 g/dL (6.4-8.2)
[2021-02-22] MEDS: DEXAMETHASONE SOD PHOS 4 MG/ML VIAL. IVP SCH (08:56)
[2021-02-22] MEDS: VANCOMYCIN 1.5 GM in IV NORMAL SALINE 500ML 500 ML IV SCH (08:56)
[2021-02-22] MEDS: amLODIPine BESYLATE 5 MG TABLET PO SCH (08:57)
[2021-02-22] MEDS ORDERED: ZINC SULFATE 220 MG CAPSULE. PO SCH (09:00)
[2021-02-22] MEDS ORDERED: ONDANSETRON ODT 4 MG TAB.RAPDIS PO PRN (10:45)
[2021-02-22 10:57] VITALS: BP 159/116
--- NOTE | 2021-02-22 13:12 | NUR ---
discharge Pt left ama . this nurse educated pt on risks involved with leaving hospital against medical advice and pt continued to insist to leave. pt was escorted out at 1300
[2021-02-22] MEDS ORDERED: VANCOMYCIN 1.5 GM in IV NORMAL SALINE 500ML 500 ML IV SCH (14:00)
[2021-02-22] MEDS ORDERED: LACTOBACILLUS RHAMNOSUS GG 1 CAPSULE. PO SCH (21:00)
== END 2021-02-22 13:30 | disposition left against medical advice (07) | DRG 602 ==
LOC: ER 06:59 → 1 SOUTH 08:45
PROVIDERS: ADMIT Internal Medicine; ATTEND Internal Medicine
DX: L03.115 Cellulitis of right lower limb (principal); U07.1 COVID-19; M16.12 Unilateral primary osteoarthritis, left hip; I10 Essential (primary) hypertension; R21 Rash and other nonspecific skin eruption; Z53.29 Procedure and treatment not carried out because of patient's decision for other reasons; Z83.3 Family history of diabetes mellitus; Z82.61 Family history of arthritis
CPT/HCPCS: 36415; 71045; 80053; 80202; 81001; 83605; 85007; 85025; 85027; 87040; 87070; 87086; 87426; 96361; 96365; 96366; 96375; J0696; J1100; J1170; J1650; J2270; J2405; J3370; J7040; Q0162; 99285-25; J7030

== ENCOUNTER 2021-03-02 23:25 | Emergency (ER) | payer SELFPAY ==
[~2021-03-02] VITALS: Ht 182.9 cm; Wt 103.6 kg
[2021-03-02 23:40] VITALS: BP 153/115
[2021-03-02] MEDS ORDERED: CLIN-95 PO (23:52)
[2021-03-02] MEDS ORDERED: cefTRIAXone SODIUM 1 GM VIAL ONE (23:52)
--- NOTE | 2021-03-02 23:53 | PHYS DOC ---
Past History Past Medical History: Alcoholism Additional Past Medical Histor: UNKNOW PT UNABLE TO RESPOND Past Surgical History: No Surgical History Additional Past Surgical Histo: knee surgery, left Alcohol Use: Occasionally Adult General Chief Complaint Chief Complaint: LOWER EXTREMITY SWELLING HPI HPI Patient is a 35-year-old male, up-to-date on his tetanus status who presents with a chief complaint of infection in lower right leg. States about a week ago he had His leg while moving some furniture he has been scratching on it now thinks it is infected. Denies any other traumas, illnesses, fevers chest pain, shortness of breath, abdominal pain, nausea, vomiting. States he has not seen a physician for this. Review of Systems Review of Systems Review of systems otherwise unremarkable except noted in HPI Allergies Allergies Allergies Coded Allergies Type Severity Reaction Last Updated Verified No Known Drug Allergies 02/17/20 No Physical Exam Physical Exam Constitutional: Well developed, well nourished, no acute distress, non-toxic appearance. [] HENT: Normocephalic, atraumatic, Eyes: conjunctiva normal, no discharge. [] Neck: Normal range of motion, no tenderness, supple, no stridor. [] Cardiovascular:Heart rate regular rhythm, no murmur [] Lungs & Thorax: Bilateral breath sounds clear to auscultation [] Extremities: No tenderness, no cyanosis, no clubbing, ROM intact, no edema. [] Neurologic: Alert and oriented X 3, normal motor function, normal sensory function, no focal deficits noted. [] Psychologic: Affect normal, judgement normal, mood normal. [] Current Patient Data Vital Signs Vital Signs Date Time Temp Pulse Resp B/P (MAP) Pulse Ox O2 Delivery O2 Flow Rate FiO2 03/02/21 23:40 98.0 115 18 153/115 (128) 95 Room Air EKG EKG [] Radiology/Procedures Radiology/Procedures [] Heart Score C/O Chest Pain: No Risk Factors: Risk Factors: DM, Current or recent (<one month) smoker, HTN, HLP, family history of CAD, obesity. Risk Scores: Risk Factors: DM, Current or recent (<one month) smoker, HTN, HLP, family history of CAD, obesity. Course & Med Decision Making Course & Med Decision Making Patient is a 35-year-old male who presents to the emergency department with a chief complaint of lower leg infection Vital signs notable for tachycardia and hypertension. Physical exam noted above. Patient endorses drinking many beers tonight as well but was brought by his friends of his friends are taking him home as he is here visiting and is staying with them. Discussed options for treatment with patient including IV antibiotics and sta arlene in the emergency department and/or admission to the hospital. Patient states he would prefer just to start oral antibiotics and follow-up with his primary care physician. Discussed the risks of this including worsening of the infection, sepsis, disab ility and in the worst case scenario but patient stated he would be okay, take oral and follow-up with his doctor. Started on antibiotics in the emergency department. Advised to follow-up in the morning with his primary care physician to update on ED visit and set up a follow-up. Gave return precautions to the ED. Patient grateful, verbalized understanding and agreed with plan of discharge [] Dragon Disclaimer Dragon Disclaimer This electronic medical record was generated, in whole or in part, using a voice recognition dictation system. Departure Departure: Impression: Primary Impression: Cellulitis Disposition: HOME / SELF CARE / HOMELESS Condition: GOOD Referrals: PCP,NO (PCP) LISANDRO FATIMA MD Patient Instructions: Cellulitis Additional Instructions: Thank you for coming into the emergency department tonight and allowing us to take care of you. Please read the attached information carefully to go back over some of the things we discussed. Please keep your wound clean, dry and bandaged. Please take all your antibiotics as prescribed and until gone. You can also use Tylenol and ibuprofen as needed. It is very important you follow- up in the morning with a primary care physician to set up a follow-up visit. You can call your primary care physician, the primary care physician number provided or [facility] or [facility]. Poor recall please call them first thing in the morning to set up a follow-up within the week. Please come back with new or concerning symptoms as discussed to avoid any other complications we discussed such as worsening illness, infection, pain, disability and in the worst case scenario . Scripts Clindamycin Hcl (CLINDAMYCIN HCL) 300 Mg Capsule 1 CAP PO Q6HRS for cellulitis for 10 Days, #40 CAP Prov: EDER CASTILLO MD 03/02/21 EDER CASTILLO MD Mar 02, 2021 23:53
[2021-03-03] MEDS ORDERED: CLINDAMYCIN HCL 150 MG CAPSULE PO ONE
== END 2021-03-02 23:59 | disposition home or self-care (01) ==
LOC: ER 23:25
DX: L03.115 Cellulitis of right lower limb (principal); F10.20 Alcohol dependence, uncomplicated; Y90.9 Presence of alcohol in blood, level not specified
CPT/HCPCS: 99283